=== PATIENT | female | born 1975 | race Caucasian/White ===

== ENCOUNTER 2023-02-14 03:54 | Day surgery (SDC) | payer OTHER ==
[2023-02-12 15:43] VITALS: BMI 32.8
[2023-02-14] MEDS ORDERED: PROPOFOL 20 ML ONE (07:22)
[2023-02-14] MEDS ORDERED: LIDOCAINE HCL/PF 2% SDV 5ML VIAL ONE (07:22)
[2023-02-14] MEDS ORDERED: MIDAZOLAM HCL 2 MG/2 ML SINGLE DOSE VIAL ONE (07:22)
[2023-02-14] MEDS ORDERED: DEXAMETHASONE SOD PHOSPHATE 4 MG/1 ML VIAL ONE (08:06)
[2023-02-14] MEDS ORDERED: ONDANSETRON 4 MG/2 ML VIAL ONE (08:06)
[2023-02-14] MEDS ORDERED: KETOROLAC TROMETHAMINE 30 MG/1 ML VIAL ONE (08:06)
[2023-02-14] MEDS ORDERED: ceFAZolin SODIUM 1 GM VIAL ONE (08:06)
[2023-02-14] MEDS ORDERED: ceFAZolin SODIUM 1 GM VIAL IVPB ONE (08:09)
[2023-02-14] MEDS ORDERED: LIDOCAINE 1%/EPI 1:100000 (50 ML MULTI DOSE VIAL) INF ONE ×2 (08:10)
[2023-02-14] MEDS ORDERED: oxyCODONE HCL 5 MG TABLET PO PRN ×2 (09:01)
[2023-02-14] MEDS ORDERED: ONDANSETRON 4 MG/2 ML VIAL IVPUSH PRN (09:01)
[2023-02-14] MEDS ORDERED: PROMETHAZINE HCL 25 MG/1 ML VIAL IVPB PRN (09:01)
[2023-02-14] MEDS ORDERED: ACETAMINOPHEN 1000 MG/100 ML BAG IVPB ONE (09:01)
[2023-02-14] MEDS ORDERED: LACTATED RINGERS SOLUTION 1,000 ML IV SCH (09:15)
[2023-02-14 10:28] VITALS: RESP 16; TEMP 97.3
[2023-02-14] MEDS ORDERED: oxyCODONE HCL 5 MG TABLET ONE (10:31)
[2023-02-14 11:46] VITALS: BP 123/75; PULSE 62
== END 2023-02-14 11:05 | disposition home or self-care (01) ==
LOC: JASU-SURG 03:54
PROVIDERS: ATTEND Otolaryngology
PROC: 09B0XZZ Excision of Right External Ear, External Approach (ICD-10-PCS; principal; 2023-02-14 08:00)
DX: Q18.1 Preauricular sinus and cyst (principal)
CPT/HCPCS: 81025; 88304-TC; 94760